=== PATIENT | female | born 1990 | race Caucasian/White ===

== ENCOUNTER 2016-06-22 21:32 | Emergency (ER) | payer OTHER ==
[2016-06-22] MEDS ORDERED: ACETAMINOPHEN IV (For NPO) 1,000 MG in EMPTY BAG 1 BAG IVPB STA (22:27)
[2016-06-22] MEDS ORDERED: SODIUM CHLORIDE 0.9% 1,000 ML IV ONE (22:27)
[2016-06-22] MEDS ORDERED: ONDANSETRON 4 MG/2 ML VIAL IVP STA (22:28)
[2016-06-22] MEDS ORDERED: HYDROmorphone 1 MG/ML 1 ML SYRINGE IVP STA (22:28)
--- NOTE | 2016-06-22 22:31 | ED ---
Abdominal Pain HPI - General Chief Complaint: Abdominal Pain Stated Complaint: Abd Pain Time Seen by Provider: 06/22/16 22:09 Source: patient, RN notes reviewed Mode of arrival: ambulatory Limitations: no limitations - History of Present Illness Initial Comments: Patient is a 25-year-old female since emergency room for evaluation of abdominal pain. Patient states she was here a few days ago for the same issues. Patient states she was told she had a right ovarian cyst. Patient states she hasn't been able follow-up with PROGRAM EVALUATOR. Patient states having worsening pain mostly in her right upper quadrant that radiates to her right lower quadrant and to her back. Patient states that she's been very nauseous and vomited multiple times. Patient also states that she's been very warm and has had a fever for the past 2 days. Patient states last time she took any Tylenol or Motrin was yesterday. Patient states having increasing pain. Patient states she hasn't been able to keep anything down. Patient also states she's had a cough and headache for the past few days. Patient does admit to smoking daily. Patient states having chills. Patient denies neck pain or shortness of breath. Patient denies chest pain. Patient denies pain or burning during urination, trouble urinating or blood in urine. Patient denies any history of kidney stones. Patient states she has a history of appendectomy when she was 13 years and a tubal ligation about 5 years ago. Patient denies history of STDs. Patient denies any abnormal vaginal discharge or irritation. - Related Data Previous Rx's Medication Instructions Recorded Acetaminophen-Codeine 300-30mg 1 tab PO Q4H PRN #20 tablet 06/17/16 [Tylenol w/codeine #3] Ibuprofen [Motrin] 600 mg PO Q8HR PRN #20 tab 06/17/16 Amoxicillin/Potassium Clav 1 each PO Q12HR #20 tab 06/23/16 [Augmentin 875-125 Tablet] Allergies Allergy/AdvReac Type Severity Reaction Status Date / Time latex Allergy Rash/Hives Verified 06/22/16 22:19 sulfamethoxazole Allergy Rash/Hives, Verified 06/22/16 22:19 [From Bactrim] vomiting trimethoprim [From Bactrim] Allergy Rash/Hives, Verified 06/22/16 22:19 vomiting Review of Systems ROS Statement: Those systems with pertinent positive or pertinent negative responses have been documented in the HPI. ROS Other: All systems not noted in ROS Statement are negative. Past Medical History Past Medical History: No Reported History Additional Past Medical History / Comment(s): ovarian cysts History of Any Multi-Drug Resistant Organisms: MRSA Date of last positivie culture/infection: 2011/MRSA MDRO Source:: pt states rt hip Past Surgical History: Appendectomy, Tubal Ligation Additional Past Surgical History / Comment(s): laproscopic of fallopian tubes Past Psychological History: No Psychological Hx Reported Smoking Status: Current every day smoker Past Alcohol Use History: Occasional Past Drug Use History: None Reported General Exam - General Exam Comments Initial Comments: Laying in exam room Limitations: no limitations General appearance: alert, in no apparent distress Head exam: Present: atraumatic, normocephalic, normal inspection Eye exam: Present: normal appearance, PERRL, EOMI Pupils: Present: normal accommodation ENT exam: Present: normal exam, mucous membranes moist, TM's normal bilaterally , normal external ear exam Neck exam: Present: normal inspection, full ROM. Absent: tenderness, lymphadenopathy Respiratory exam: Present: normal lung sounds bilaterally. Absent: respiratory distress Cardiovascular Exam: Present: normal rhythm, tachycardia, normal heart sounds GI/Abdominal exam: Present: soft, tenderness (RUQ), normal bowel sounds. Absent : distended, rebound, rigid Extremities exam: Present: normal inspection Back exam: Present: normal inspection Neurological exam: Present: alert, oriented X3, CN II-XII intact, normal gait Psychiatric exam: Present: normal affect, normal mood Skin exam: Present: warm, dry, intact, normal color. Absent: rash Course Vital Signs 06/22/16 06/22/16 06/23/16 21:46 23:28 00:29 Temperature 101.8 F H 104.3 F H 100.4 F H Pulse Rate 113 H 114 H 94 Respiratory 18 18 16 Rate Blood Pressure 105/55 105/62 110/56 O2 Sat by Pulse 99 100 99 Oximetry 06/23/16 06/23/16 06/23/16 01:14 02:43 04:03 Temperature 97.9 F 98.1 F 98 F Pulse Rate 88 62 18 L Respiratory 16 16 72 H Rate Blood Pressure 96/51 97/52 105/53 O2 Sat by Pulse 97 100 99 Oximetry Medical Decision Making - Medical Decision Making Patient is a 25-year-old female presents emergency room for evaluation of abdominal pain and fever. Patient has slightly elevated white count. Ultrasound from last visit so no concerning findings. Patient states that she received a pelvic exam done last visit. Vaginal culture significant for group B strep. CT of abdomen and pelvis significant for possible right pyelonephritis. Will patient on antibiotics to cover for group B strep. Patient states she understands everything that was discussed with her. Return parameters discussed. - Lab Data Result diagrams: 06/22/16 23:15 06/22/16 23:15 Lab Results 06/22/16 06/22/16 06/22/16 Range/Units 00:25 23:15 23:15 WBC 12.1 H (3.8-10.6) k/uL RBC 4.81 (3.80-5.40) m/uL Hgb 11.0 L (11.4-16.0) gm/dL Hct 35.2 (34.0-46.0) % MCV 73.2 L (80.0-100.0) fL MCH 22.9 L (25.0-35.0) pg MCHC 31.3 (31.0-37.0) g/dL RDW 15.5 (11.5-15.5) % Plt Count 327 (150-450) k/uL Neutrophils % 83 % Lymphocytes % 11 % Monocytes % 5 % Eosinophils % 1 % Basophils % 0 % Neutrophils # 10.0 H (1.3-7.7) k/uL Lymphocytes # 1.3 (1.0-4.8) k/uL Monocytes # 0.5 (0-1.0) k/uL Eosinophils # 0.1 (0-0.7) k/uL Basophils # 0.0 (0-0.2) k/uL Hypochromasia Slight Microcytosis Slight Sodium 134 L (137-145) mmol/L Potassium 3.5 (3.5-5.1) mmol/L Chloride 99 (98-107) mmol/L Carbon Dioxide 22 (22-30) mmol/L Anion Gap 13 mmol/L BUN 7 (7-17) mg/dL Creatinine 0.80 (0.52-1.04) mg/dL Est GFR (MDRD) Af Amer >60 (>60 ml/min/1.73 sqM) Est GFR (MDRD) Non-Af >60 (>60 ml/min/1.73 sqM) Glucose 112 H (74-99) mg/dL Calcium 8.5 (8.4-10.2) mg/dL Total Bilirubin 0.9 (0.2-1.3) mg/dL AST 13 L (14-36) U/L ALT 29 (9-52) U/L Alkaline Phosphatase 82 (38-126) U/L Total Protein 7.5 (6.3-8.2) g/dL Albumin 3.9 (3.5-5.0) g/dL Amylase <30 L (30-110) U/L Lipase 50 (23-300) U/L Urine Color Urine Appearance (Clear) Urine pH (5.0-8.0) Ur Specific [place] (1.001-1.035) Urine Protein (Negative) Urine Glucose (UA) (Negative) Urine Ketones (Negative) Urine Blood (Negative) Urine Nitrate (Negative) Urine Bilirubin (Negative) Urine Urobilinogen (<2.0) mg/dL Ur Leukocyte Esterase (Negative) Urine RBC (0-5) /hpf Urine WBC (0-5) /hpf Ur Squamous Epith Cells (0-4) /hpf Urine Mucus (None) /hpf Urine HCG, Qual Not Detected (Not Detectd) Influenza Type A RNA (Not Detectd) Influenza Type B (PCR) (Not Detectd) 06/22/16 06/23/16 Range/Units 23:15 00:25 WBC (3.8-10.6) k/uL RBC (3.80-5.40) m/uL Hgb (11.4-16.0) gm/dL Hct (34.0-46.0) % MCV (80.0-100.0) fL MCH (25.0-35.0) pg MCHC (31.0-37.0) g/dL RDW (11.5-15.5) % Plt Count (150-450) k/uL Neutrophils % % Lymphocytes % % Monocytes % % Eosinophils % % Basophils % % Neutrophils # (1.3-7.7) k/uL Lymphocytes # (1.0-4.8) k/uL Monocytes # (0-1.0) k/uL Eosinophils # (0-0.7) k/uL Basophils # (0-0.2) k/uL Hypochromasia Microcytosis Sodium (137-145) mmol/L Potassium (3.5-5.1) mmol/L Chloride (98-107) mmol/L Carbon Dioxide (22-30) mmol/L Anion Gap mmol/L BUN (7-17) mg/dL Creatinine (0.52-1.04) mg/dL Est GFR (MDRD) Af Amer (>60 ml/min/1.73 sqM) Est GFR (MDRD) Non-Af (>60 ml/min/1.73 sqM) Glucose (74-99) mg/dL Calcium (8.4-10.2) mg/dL Total Bilirubin (0.2-1.3) mg/dL AST (14-36) U/L ALT (9-52) U/L Alkaline Phosphatase (38-126) U/L Total Protein (6.3-8.2) g/dL Albumin (3.5-5.0) g/dL Amylase (30-110) U/L Lipase (23-300) U/L Urine Color Light Yellow Urine Appearance Clear (Clear) Urine pH 5.5 (5.0-8.0) Ur Specific [place] 1.004 (1.001-1.035) Urine Protein Negative (Negative) Urine Glucose (UA) Negative (Negative) Urine Ketones Trace H (Negative) Urine Blood Negative (Negative) Urine Nitrate Negative (Negative) Urine Bilirubin Negative (Negative) Urine Urobilinogen <2.0 (<2.0) mg/dL Ur Leukocyte Esterase Trace H (Negative) Urine RBC 1 (0-5) /hpf Urine WBC 9 H (0-5) /hpf Ur Squamous Epith Cells 3 (0-4) /hpf Urine Mucus Rare H (None) /hpf Urine HCG, Qual (Not Detectd) Influenza Type A RNA Not Detected (Not Detectd) Influenza Type B (PCR) Not Detected (Not Detectd) - Radiology Data Radiology results: report reviewed, image reviewed Disposition Clinical Impression: Pyelonephritis Disposition: HOME SELF-CARE Condition: Good Instructions: Flank Pain (ED), Kidney Infection (ED) Additional Instructions: Take antibiotics as directed. Follow-up with PROGRAM EVALUATOR in 24-48 hours for reevaluation. Alternate Tylenol and Motrin for fever. If any new symptom arises or symptoms worsen return to ER as soon as possible. Prescriptions: Amoxicillin/Potassium Clav [Augmentin 875-125 Tablet] 1 each PO Q12HR #20 tab Referrals: Freda Dickerson MD [STAFF PHYSICIAN] - 1-2 days Time of Disposition: 01:55
[2016-06-22 23:28] LABS: Basophils % (A) 0 %; CHCM 31.6; Eosinophils # (A) 0.1 k/uL (0-0.7); Eosinophils % (A) 1 %; HCT 35.2 % (34.0-46.0); HDW 2.77; Hypochromasia Slight; Luc # (Auto) 0.15; Luc % (Auto) 1; Lymphocytes # (A) 1.3 k/uL (1.0-4.8); Lymphocytes % (A) 11 %; MCH 22.9 pg (25.0-35.0); MCHC 31.3 g/dL (31.0-37.0); MCV 73.2 fL (80.0-100.0); Mean Platelet Volume 6.5; Microcytosis Slight; Monocytes # (A) 0.5 k/uL (0-1.0); Monocytes % (A) 5 %; Neutrophils % (A) 83 %; RBC 4.81 m/uL (3.80-5.40); RDW 15.5 % (11.5-15.5); WBC 12.1 k/uL (3.8-10.6); WBC (Perox) 12.85
[2016-06-22 23:39] LABS: ALT 29 U/L (9-52); AST 13 U/L (14-36); Alkaline Phosphatase 82 U/L (38-126); Amylase <30 U/L (30-110); Anion Gap 13 mmol/L; Blood Urea Nitrogen 7 mg/dL (7-17); Calcium 8.5 mg/dL (8.4-10.2); Carbon Dioxide 22 mmol/L (22-30); Chloride 99 mmol/L (98-107); Glucose 112 mg/dL (74-99); Non-African American GFR(MDRD) >60 (>60 ml/min/1.73 sqM); Potassium 3.5 mmol/L (3.5-5.1); Sodium 134 mmol/L (137-145); Total Bilirubin 0.9 mg/dL (0.2-1.3); Total Protein 7.5 g/dL (6.3-8.2)
[2016-06-23] MEDS ORDERED: RX INFO: IV CONTRAST WAS GIVEN 1 EACH MISC MISCELLANE PRN (00:19)
[2016-06-23 00:36] LABS: Appearance,Urine Clear (Clear); Bilirubin,Urine Negative (Negative); Glucose,Urine (UA) Negative (Negative); Ketones,Urine Trace (Negative); Leukocyte Esterase,Urine Trace (Negative); Mucus,Urine Rare /hpf; Nitrite,Urine Negative (Negative); PH, Urine 5.5 (5.0-8.0); Particle Count 2304; Protein,Urine Negative (Negative); RBC,Urine 1 /hpf (0-5); Specific Gravity,Urine 1.004 (1.001-1.035); Squamous Epithelial Cell,Urine 3 /hpf (0-4); UA Billing (MACRO vs. MICRO) MICRO; Urobilinogen,Urine <2.0 mg/dL (<2.0); WBC,Urine 9 /hpf (0-5)
--- NOTE | 2016-06-23 01:29 | CT ---
EXAMINATION TYPE: CT abdomen pelvis w con DATE OF EXAM: 06/23/2016 12:59 AM COMPARISON: CT pelvis 09/06/2009 HISTORY: Right side abdominal pain with nausea, vomiting, and diarrhea CT DLP: 343.50 mGycm Automated exposure control for dose reduction was used. TECHNIQUE: Helical acquisition of images was performed from the lung bases through the pelvis. CONTRAST: Performed without Oral Contrast and with IV Contrast, patient injected with 100 mL of Omnipaque 300. FINDINGS: LUNG BASES: No significant abnormality is appreciated. LIVER/GB: No significant abnormality is appreciated. PANCREAS: No significant abnormality is seen. SPLEEN: No significant abnormality is seen. ADRENALS: No significant abnormality is seen. KIDNEYS: The right kidney showed abnormal contrast enhancement and is suspicious for acute pyelonephritis dior ges. There is mild to moderate right hydronephrosis and hydroureter. This could be related to reflux uropa thy. No obvious opaque stones are noted in the visualized the right ureter. Surgical clips are noted in the right pelvis probably related to tubal ligation. Tubal ligation clips are also noted on the left side in the axial image 70.. Left kidney showed mild fullness in the left renal pelvis without significant obstructing stones. Lef t ureter is not well visualized and is not significantly distended. REPRODUCTIVE ORGANS: Uterus appears grossly unremarkable and is tilted towards right. Cystic changes are suggested in the right ovary. There is possibility of small amount of free fluid in the right adn exa and cul-de-sac. Tubal ligation changes are noted in the pelvis. URINARY BLADDER: No significant abnormality is seen. PELVIC ADENOPATHY: None visualized. OSSEOUS STRUCTURES: No significant abnormality is seen. BOWEL: Stomach appears unremarkable. Mild fluid distention of small bowel loops is noted with possib le mild ileus without significant focal small bowel obstruction. Colonic bowel loops showed moderate gas and fluid distention with possible ileus without significant bowel obstruction. Appendix is not w ell visualized for evaluation. Others: A metallic belly ring is noted in place. IMPRESSION: 1. THERE IS MILD TO MODERATE RIGHT HYDRONEPHROSIS AND HYDROURETER WITHOUT DEFINITE OPAQUE OBSTRUCTING STONE. THE CHANGES MAY BE RELATED TO REFLUX UROPATHY AND ACUTE PYELONEPHRITIS. 2. MILD FULLNESS IS NOTED IN THE LEFT KIDNEY WITHOUT SIGNIFICANT HYDRONEPHROSIS. 3. Possible mild ileus involving small bowel loops and colonic bowel loops. A phone report is given to Diane Brandon the PA at the time of the dictation.
--- NOTE | 2016-06-23 01:38 | XR ---
EXAMINATION TYPE: XR chest 2V DATE OF EXAM: 06/23/2016 12:56 AM COMPARISON: NONE HISTORY: History of cough and fever TECHNIQUE: Frontal and lateral views of the chest are obtained. FINDINGS: There is no focal air space opacity, pleural effusion, or pneumothorax seen. The cardiac silhouette size is within normal limits. The osseous structures are intact. Nipple rings are noted bilaterally. IMPRESSION: No acute cardiopulmonary process.
[2016-06-23] MEDS ORDERED: cefTRIAXone 2,000 MG VIAL IM STA (01:54)
[2016-06-23] MEDS ORDERED: ACET/COD 300 MG/30 MG STARTER PACK 6 TAB BTL PO STA (02:15)
[2016-06-23] MEDS ORDERED: cefTRIAXone 2,000 MG in SODIUM CHLORIDE 0.9% 100 ML IVPB STA (02:22)
[2016-06-23] MEDS ORDERED: MORPHINE SULFATE 2 MG/ML SYRINGE IVP ONE (02:46)
[2016-06-23 04:04] VITALS: BP 105/53; PULSE 18; RESP 72; TEMP 98
== END 2016-06-23 04:06 | disposition home or self-care (01) ==
LOC: EC 21:32
DX: N12 Tubulo-interstitial nephritis, not specified as acute or chronic (principal); N83.201 Unspecified ovarian cyst, right side; F17.200 Nicotine dependence, unspecified, uncomplicated; Z88.2 Allergy status to sulfonamides; Z88.1 Allergy status to other antibiotic agents; Z91.040 Latex allergy status; R05 Cough; R51 Headache; Z90.49 Acquired absence of other specified parts of digestive tract; B95.1 Streptococcus, group B, as the cause of diseases classified elsewhere
CPT/HCPCS: 36415; 80053; 82150; 83690; 85025; 81001; 81025; 87502; 71020; 74177; 99284; 96365; 96375 ×2; 96374; J2405; J0696; J2270; J1170; Q9967; J0131

== ENCOUNTER 2016-09-19 22:34 | Emergency (ER) | payer OTHER ==
[2016-09-19] MEDS ORDERED: KETOROLAC 30 MG/ML 1 ML VIAL IVP STA (23:34)
[2016-09-19] MEDS ORDERED: SODIUM CHLORIDE 0.9% 500 ML IV STA (23:34)
--- NOTE | 2016-09-19 23:36 | ED ---
Abdominal Pain HPI - General Chief Complaint: Abdominal Pain Stated Complaint: poss cyst on ovary Time Seen by Provider: 09/19/16 23:31 Source: patient, RN notes reviewed Mode of arrival: ambulatory Limitations: no limitations - History of Present Illness Initial Comments: 26-year-old female presents to the emergency department with a chief complaint of right lower quadrant abdominal pain. Patient states she has a history of ovarian cysts. Patient states she developed this pain earlier today. Patient states that radiates back. Patient states symptoms are so bad it caused her to have nausea. Patient states she hasn't had a fever or chills with this. Patient denies any cough cold runny nose. Patient states that she was concerned due to the patient's is that she should be evaluated. Patient does admit to a history of an appendectomy. Patient denies any recent fever, chills, shortness of breath, chest pain, back pain, nausea vomiting, numbness or tingling, dysuria or hematuria, constipation or diarrhea, headaches or visual changes, or any other current symptoms. - Related Data Home Medications Medication Instructions Recorded Confirmed Ibuprofen [Advil] 400 mg PO Q8HR PRN 09/19/16 09/19/16 Previous Rx's Medication Instructions Recorded Ibuprofen [Motrin] 600 mg PO Q6HR PRN #20 tab 09/20/16 Allergies Allergy/AdvReac Type Severity Reaction Status Date / Time latex Allergy Rash/Hives Verified 09/19/16 23:21 sulfamethoxazole Allergy Rash/Hives, Verified 09/19/16 23:21 [From Bactrim] vomiting trimethoprim [From Bactrim] Allergy Rash/Hives, Verified 09/19/16 23:21 vomiting Review of Systems ROS Statement: Those systems with pertinent positive or pertinent negative responses have been documented in the HPI. ROS Other: All systems not noted in ROS Statement are negative. Past Medical History Past Medical History: No Reported History Additional Past Medical History / Comment(s): ovarian cysts History of Any Multi-Drug Resistant Organisms: MRSA Date of last positivie culture/infection: 2011/MRSA MDRO Source:: pt states rt hip Past Surgical History: Appendectomy, Tubal Ligation Additional Past Surgical History / Comment(s): laproscopic of fallopian tubes Past Psychological History: No Psychological Hx Reported Smoking Status: Current every day smoker Past Alcohol Use History: Occasional Past Drug Use History: None Reported General Exam - General Exam Comments Initial Comments: General: The patient is awake and alert, in no distress, and does not appear acutely ill. Eye: Pupils are equal, round and reactive to light, extra-ocular movements are intact; there is normal conjunctiva bilaterally. No signs of icterus. Ears, nose, mouth and throat: There are moist mucous membranes. Neck: The neck is supple, there is no tenderness. Cardiovascular: There is a regular rate and rhythm. No murmur, rub or gallop is appreciated. Respiratory: Lungs are clear to auscultation, respirations are non-labored, breath sounds are equal. No wheezes, stridor, rales, or rhonchi. Gastrointestinal: Soft, non-distended, tenderness in the right lower quadrant of the abdomen without masses or organomegaly noted. There is no rebound or guarding present. No CVA tenderness. Bowel sounds are unremarkable. Back: There is no tenderness to palpation in the midline. There is no obvious deformity. No rashes noted. Musculoskeletal: Normal ROM, no tenderness, There is no pedal edema. There is no calf tenderness or swelling. Sensation intact. Pulses equal bilaterally 2+. Neurological: CN II-XII intact, There are no obvious motor or sensory deficits. Coordination appears grossly intact. Speech is normal. Skin: Skin is warm and dry and no rashes or lesions are noted. Psychiatric: Cooperative, appropriate mood & affect, normal judgment. Limitations: no limitations Course Vital Signs 09/19/16 22:47 Temperature 99.3 F Pulse Rate 108 H Respiratory 20 Rate Blood Pressure 118/61 O2 Sat by Pulse 100 Oximetry Medical Decision Making - Medical Decision Making 26-year-old female presents emergency Department chief complaint of abdominal pain. It is sinus patient appears to have a right ovarian cyst. This is likely causing the patient's pain. We discussed Motrin Tylenol for pain control. We discussed follow-up with EXECUTIVE TEAM LEADER and return parameters. Patient stated that she understood all the questions have been answered. She will be discharged home. - Lab Data Result diagrams: 09/19/16 23:48 09/19/16 23:48 Lab Results 09/19/16 09/19/16 09/19/16 Range/Units 23:30 23:48 23:48 WBC 6.5 (3.8-10.6) k/uL RBC 4.96 (3.80-5.40) m/uL Hgb 11.1 L (11.4-16.0) gm/dL Hct 36.6 (34.0-46.0) % MCV 73.8 L (80.0-100.0) fL MCH 22.4 L (25.0-35.0) pg MCHC 30.3 L (31.0-37.0) g/dL RDW 15.4 (11.5-15.5) % Plt Count 389 (150-450) k/uL Neutrophils % 58 % Lymphocytes % 32 % Monocytes % 6 % Eosinophils % 1 % Basophils % 0 % Neutrophils # 3.8 (1.3-7.7) k/uL Lymphocytes # 2.1 (1.0-4.8) k/uL Monocytes # 0.4 (0-1.0) k/uL Eosinophils # 0.1 (0-0.7) k/uL Basophils # 0.0 (0-0.2) k/uL Hypochromasia Marked Microcytosis Slight Sodium 142 (137-145) mmol/L Potassium 4.4 (3.5-5.1) mmol/L Chloride 104 (98-107) mmol/L Carbon Dioxide 26 (22-30) mmol/L Anion Gap 12 mmol/L BUN 6 L (7-17) mg/dL Creatinine 0.80 (0.52-1.04) mg/dL Est GFR (MDRD) Af Amer >60 (>60 ml/min/1.73 sqM) Est GFR (MDRD) Non-Af >60 (>60 ml/min/1.73 sqM) Glucose 80 (74-99) mg/dL Calcium 9.0 (8.4-10.2) mg/dL Total Bilirubin 0.3 (0.2-1.3) mg/dL AST 20 (14-36) U/L ALT 34 (9-52) U/L Alkaline Phosphatase 73 (38-126) U/L Total Protein 7.8 (6.3-8.2) g/dL Albumin 4.2 (3.5-5.0) g/dL Urine Color Colorless Urine Appearance Clear (Clear) Urine pH 6.0 (5.0-8.0) Ur Specific [place] 1.001 (1.001-1.035) Urine Protein Negative (Negative) Urine Glucose (UA) Negative (Negative) Urine Ketones Negative (Negative) Urine Blood Negative (Negative) Urine Nitrite Negative (Negative) Urine Bilirubin Negative (Negative) Urine Urobilinogen <2.0 (<2.0) mg/dL Ur Leukocyte Esterase Trace H (Negative) Urine WBC 1 (0-5) /hpf Ur Squamous Epith Cells <1 (0-4) /hpf - Radiology Data Radiology results: report reviewed, image reviewed Disposition Clinical Impression: Right ovarian cyst Disposition: HOME SELF-CARE Condition: Stable Instructions: Ovarian Cyst (ED) Additional Instructions: Please use medication as discussed. Please follow up with family doctor if symptoms have not improved over the next two days. Please return to the emergency room if your symptoms increase or worsen or for any other concerns. Prescriptions: Ibuprofen [Motrin] 600 mg PO Q6HR PRN #20 tab PRN Reason: Pain Referrals: None,Stated [Primary Care Provider] - 1-2 days Charles Hernadez MD [STAFF PHYSICIAN] - 1-2 days Time of Disposition: 01:55
[2016-09-19 23:41] LABS: Appearance,Urine Clear (Clear); Bilirubin,Urine Negative (Negative); Glucose,Urine (UA) Negative (Negative); Ketones,Urine Negative (Negative); Leukocyte Esterase,Urine Trace (Negative); Nitrite,Urine Negative (Negative); Particle Count 498; Protein,Urine Negative (Negative); Specific Gravity,Urine 1.001 (1.001-1.035); Squamous Epithelial Cell,Urine <1 /hpf (0-4); UA Billing (MACRO vs. MICRO) MICRO; Urobilinogen,Urine <2.0 mg/dL (<2.0); WBC,Urine 1 /hpf (0-5)
[2016-09-20 00:01] LABS: Basophils % (A) 0 %; CH 21.5; CHCM 29.2; Eosinophils # (A) 0.1 k/uL (0-0.7); Eosinophils % (A) 1 %; HCT 36.6 % (34.0-46.0); HDW 2.82; HGB 11.1 gm/dL (11.4-16.0); Hypochromasia Marked; Luc # (Auto) 0.18; Luc % (Auto) 3; Lymphocytes # (A) 2.1 k/uL (1.0-4.8); Lymphocytes % (A) 32 %; MCH 22.4 pg (25.0-35.0); MCHC 30.3 g/dL (31.0-37.0); MCV 73.8 fL (80.0-100.0); Mean Platelet Volume 6.5; Microcytosis Slight; Monocytes # (A) 0.4 k/uL (0-1.0); Monocytes % (A) 6 %; Neutrophils # (A) 3.8 k/uL (1.3-7.7); Neutrophils % (A) 58 %; RBC 4.96 m/uL (3.80-5.40); RDW 15.4 % (11.5-15.5); WBC 6.5 k/uL (3.8-10.6); WBC (Perox) 7.06
[2016-09-20 00:11] LABS: ALT 34 U/L (9-52); AST 20 U/L (14-36); Alkaline Phosphatase 73 U/L (38-126); Anion Gap 12 mmol/L; Blood Urea Nitrogen 6 mg/dL (7-17); Carbon Dioxide 26 mmol/L (22-30); Chloride 104 mmol/L (98-107); Glucose 80 mg/dL (74-99); Non-African American GFR(MDRD) >60 (>60 ml/min/1.73 sqM); Potassium 4.4 mmol/L (3.5-5.1); Sodium 142 mmol/L (137-145); Total Bilirubin 0.3 mg/dL (0.2-1.3); Total Protein 7.8 g/dL (6.3-8.2)
--- NOTE | 2016-09-20 01:48 | US ---
EXAM: US Pelvis, Transvaginal. CLINICAL HISTORY: Reason: Pain TECHNIQUE: Real-time transvaginal pelvic ultrasound (complete) with image documentation. Transvaginal imaging was used for better evaluation of the endometrium and adnexa. COMPARISON: CT abdomen and pelvis 06/23/2016 and pelvic ultrasound 06/17/2016 FINDINGS: Uterus/cervix: Anteverted, measuring 7.4 x 3.5 x 4.4 cm. Endometrial Stripe measures 0.7 cm, normal for age No myometrial mass. Right ovary: 3.4 x 2.1 x 2.2 cm. Cystic area with a hyperechoic rim visualized measuring 1.6 x 1.6 x 1.3 cm, likely corpus luteum cyst. Intraovarian flow is present. Left ovary: 3.9 x 1.9 x 1.7 cm. No adnexal mass or cyst. Intraovarian flow is present. Free fluid: Trace free fluid in the right adnexa, likely physiologic. Bladder: Empty bladder which cannot be evaluated with this probe. IMPRESSION: 1. Small right ovarian cyst, likely corpus luteum cyst. Normal bilateral intraovarian flow. 2. Trace free fluid in the right adnexa, likely physiologic.
[2016-09-20 02:16] VITALS: BP 108/52; PULSE 86; RESP 18; TEMP 98.1
[2016-09-20] MEDS ORDERED: ACETAMINOPHEN TAB 500 MG TAB PO STA (02:18)
== END 2016-09-20 02:25 | disposition home or self-care (01) ==
LOC: EC 22:34
DX: N83.201 Unspecified ovarian cyst, right side (principal); R11.0 Nausea; F17.200 Nicotine dependence, unspecified, uncomplicated; Z91.040 Latex allergy status; Z88.2 Allergy status to sulfonamides; Z90.49 Acquired absence of other specified parts of digestive tract; Z98.51 Tubal ligation status
CPT/HCPCS: 36415; 80053; 85025; 81001; 93975; 76830; 99284; 96374; 96361 ×2; J1885

== ENCOUNTER 2017-03-18 16:03 | Emergency (ER) | payer OTHER ==
[2017-03-18 16:08] VITALS: BP 93/57; PULSE 79; RESP 18; TEMP 97.4
--- NOTE | 2017-03-18 16:25 | ED ---
General Adult HPI - General Chief complaint: Extremity Injury, Upper Stated complaint: CRUSHING INJURY INDEX FINGER RT HAND Time Seen by Provider: 03/18/17 16:13 Source: patient, family, RN notes reviewed Mode of arrival: ambulatory Limitations: no limitations - History of Present Illness Initial comments: Chief complaint history of present illness a 26-year-old female here with her significant other. The patient accidentally got her right index finger caught in a door jam. She is right handed. She has a small laceration volar and dorsal surface. Over the PIP joint. Range of motion is decreased secondary to pain at this time. - Related Data Home Medications Medication Instructions Recorded Confirmed No Known Home Medications [No 03/18/17 03/18/17 Known Home Medications] Allergies Allergy/AdvReac Type Severity Reaction Status Date / Time latex Allergy Rash/Hives Verified 03/18/17 16:40 sulfamethoxazole Allergy Rash/Hives, Verified 03/18/17 16:40 [From Bactrim] vomiting trimethoprim [From Bactrim] Allergy Rash/Hives, Verified 03/18/17 16:40 vomiting Review of Systems ROS Statement: Those systems with pertinent positive or pertinent negative responses have been documented in the HPI. Review of systems no other complaints of pain to the right index finger. Patient's denying any other problems. All systems are reviewed. Past medical problems reviewed and are negative. Surgeries appendectomy and tubal ligation. Also family history great uncle lung cancer. Patient has ALLERGIES to sulfa takes. She does smoke strongly encouraged stop and call her family physician about ways to help stop. Denies alcohol use ROS Other: All systems not noted in ROS Statement are negative. Past Medical History Past Medical History: No Reported History Additional Past Medical History / Comment(s): ovarian cysts History of Any Multi-Drug Resistant Organisms: MRSA Date of last positivie culture/infection: 2011/MRSA MDRO Source:: pt states rt hip Past Surgical History: Appendectomy, Tubal Ligation Additional Past Surgical History / Comment(s): laproscopic of fallopian tubes Past Psychological History: No Psychological Hx Reported Smoking Status: Current every day smoker Past Alcohol Use History: Occasional Past Drug Use History: None Reported General Exam - General Exam Comments Initial Comments: General: The patient is awake and alert, complaining of pain with crush type injury over the PIP joint dominant right index finger. Vital signs temperature 97.4 pulse 79 respiratory rate 18 pulse ox R percent room air blood pressure 93/57 Musculoskeletal: Emanation finds the patient had injury to her right index finger through the PIP joint. Decreased range of motion secondary to pain. 2 small lacerations over 4 and dorsal surface through the PIP area. Neurovascular status intact. Limitations: no limitations Course Vital Signs 03/18/17 16:06 Temperature 97.4 F L Pulse Rate 79 Respiratory 18 Rate Blood Pressure 93/57 O2 Sat by Pulse 100 Oximetry Procedures - Procedures Initial comment: Her seizure; using sterile technique 1% Xylocaine was used to numb the right index finger. It was examined no evidence of any foreign bodies. Tendons intact and pupils patient is able to flex and extend fully. Both PIP and DIP joint. The wound was cleaned with Betadine. Sutured with 2 interrupted mattress style sutures of 4-0 nylon closure. Patient will be advised to return to 8-10 days for suture to remove her story signs of infection. Dr. Navarro Medical Decision Making - Medical Decision Making Medical decision making; x-ray of the right hand was done and reviewed. Radiologist's impression is no acute fractures or dislocations are evident. Soft tissues appear within normal limits. Some minimal diffuse soft tissue swelling along the index finger is not entirely excluded. Impression no acute osseous abnormality. Follow-up exam to be performed 7-10 days from acute trauma for continued pain. As read by Dr. Ky Pritchett at a 1 mL laceration on the volar surface. This was cleaned and sutured closed. Disposition Clinical Impression: Laceration of right index finger Disposition: HOME SELF-CARE Condition: Fair Instructions: Finger Laceration (ED) Additional Instructions: Ice elevate. Return in 8-10 days for suture to be removed earlier should be signs of infection. Report any decreased function numbness or tingling. Referrals: None,Stated [Primary Care Provider] - 1-2 days Time of Disposition: 17:16
--- NOTE | 2017-03-18 16:37 | XR ---
EXAMINATION TYPE: XR hand complete RT DATE OF EXAM: 03/18/2017 COMPARISON: NONE HISTORY: Index finger caught in door jam TECHNIQUE: Three-view right hand FINDINGS: No acute fractures or dislocations are evident. Soft tissues appear within normal limits. S ome minimal diffuse soft tissue swelling along the index finger is not entirely excluded. IMPRESSION: 1. No acute osseous abnormality. 2. Follow-up exam can be performed 7-10 days from acute trauma for continued pain.
--- NOTE | 2017-03-20 07:23 | CDI ---
Documentation Clarification OP Dear Baldev JAVIER MD Please do addendum to ED report that describes the laceration length and depth of the repair. Thank you, Casie Ness Career Technical Supervisor If you have any question, Please contact construction manager at [phone] [facility]
== END 2017-03-18 17:36 | disposition home or self-care (01) ==
LOC: EC 16:03
DX: S61.210A Laceration without foreign body of right index finger without damage to nail, initial encounter (principal); Z88.2 Allergy status to sulfonamides; Z91.040 Latex allergy status; F17.200 Nicotine dependence, unspecified, uncomplicated; W23.0XXA Caught, crushed, jammed, or pinched between moving objects, initial encounter
CPT/HCPCS: 12001; 99283

== ENCOUNTER 2018-04-02 17:45 | Emergency (ER) | payer OTHER ==
[2018-04-02] MEDS ORDERED: ONDANSETRON 4 MG/2 ML VIAL IVP STA (19:51)
[2018-04-02] MEDS ORDERED: KETOROLAC 30 MG/ML 1 ML VIAL IVP STA (19:51)
[2018-04-02] MEDS ORDERED: SODIUM CHLORIDE 0.9% 1,000 ML IV STA (19:51)
--- NOTE | 2018-04-02 20:02 | ED ---
Abdominal Pain HPI - General Chief Complaint: Abdominal Pain Stated Complaint: Abd Pain Time Seen by Provider: 04/02/18 19:15 Source: patient, RN notes reviewed Mode of arrival: ambulatory Limitations: no limitations - History of Present Illness Initial Comments: This is a 27-year-old female who presents to the emergency department with chief complaint of abdominal pain. Patient states that 7-8 hours ago she developed pain in her right lower abdomen and on the right side of her low back. She states the pain is constant and sharp. She states that she has experienced this pain before in the past when she had a kidney infection. She reports chills but denies fevers. Reports nausea but denies vomiting. She denies dysuria or hematuria but states that she has the sensation of not emptying her bladder fully. States she did have an episode of diarrhea yesterday. Patient states she has no medical issues and only takes multivitamins daily. - Related Data Home Medications Medication Instructions Recorded Confirmed Multivitamins, Thera [Multivitamin 1 tab PO DAILY 04/02/18 04/02/18 (formulary)] Previous Rx's Medication Instructions Recorded Levofloxacin [Levaquin] 750 mg PO DAILY 7 Days #7 tab 04/02/18 Allergies Allergy/AdvReac Type Severity Reaction Status Date / Time latex Allergy Rash/Hives Verified 04/02/18 19:18 sulfamethoxazole Allergy Rash/Hives, Verified 04/02/18 19:18 [From Bactrim] vomiting trimethoprim [From Bactrim] Allergy Rash/Hives, Verified 04/02/18 19:18 vomiting Review of Systems ROS Statement: Those systems with pertinent positive or pertinent negative responses have been documented in the HPI. ROS Other: All systems not noted in ROS Statement are negative. Past Medical History Past Medical History: No Reported History Additional Past Medical History / Comment(s): ovarian cysts History of Any Multi-Drug Resistant Organisms: MRSA Date of last positivie culture/infection: 2011/MRSA MDRO Source:: pt states rt hip Past Surgical History: Appendectomy, Tubal Ligation Additional Past Surgical History / Comment(s): laproscopic of fallopian tubes Past Psychological History: No Psychological Hx Reported Smoking Status: Current every day smoker Past Alcohol Use History: Occasional Past Drug Use History: None Reported General Exam - General Exam Comments Initial Comments: General: Awake and alert, well-developed; in no apparent distress. Appears well , sitting comfortably on ED stretcher. HEENT: Head atraumatic, normocephalic. Pupils are equal, round and reactive to light. Extraocular movements intact. Oropharynx moist without erythema or exudate. Neck: Supple. Normal ROM. Cardiovascular: Regular rate and rhythm. No murmurs, rubs or gallops. Chest symmetrical. Respiratory: Lungs clear to auscultation bilaterally. No wheezes, rales or rhonchi. Normal respiratory effort with no use of accessory muscles. Abdomen: Soft, non-distended. Mild tenderness on palpation of the right lower quadrant. No rigidity, rebound or guarding. Normal bowel sounds in all 4 quadrants. Right CVA tenderness. Musculoskeletal: Normal ROM, no tenderness bilateral upper and lower extremities. Ambulating normally. Skin: [place], warm and dry without rashes or lesions. Neurological: Alert and oriented x3. CN II-XII grossly intact. Speech is fluent and answers are appropriate. No focal neuro deficits. Psychiatric: Normal mood and affect. No overt signs of depression or anxiety noted. Limitations: no limitations Course Vital Signs 04/02/18 04/02/18 04/02/18 18:12 22:00 23:11 Temperature 98.4 F 98.7 F Pulse Rate 98 60 65 Respiratory 20 18 16 Rate Blood Pressure 118/79 116/78 117/87 O2 Sat by Pulse 100 98 100 Oximetry 04/02/18 23:42 Temperature 98.0 F Pulse Rate 66 Respiratory 18 Rate Blood Pressure 118/80 O2 Sat by Pulse 98 Oximetry Medical Decision Making - Medical Decision Making This is a 27-year-old female who presents to the emergency department with chief complaint of abdominal pain. Patient reports a constant sharp pain in her right lower abdomen and right flank. She also reports chills and nausea. There is right CVA tenderness on exam. Patient states that the last time she had this pain she was diagnosed with a kidney infection. CBC and CMP revealed no significant abnormalities. UA revealed moderate blood, large leukocyte esterase, 119 red blood cells and greater than 182 white blood cells. Discussed treating patient for pyelonephritis versus scanning for kidney stone. I have low clinical suspicion for kidney stone as patient has no history of kidney stones, her pain is constant and not colicky in nature and her x-ray KUB reveals no calcifications over the kidneys. High clinical suspicion for pyelonephritis as patient has a history of urinary tract infections, she reports chills and nausea, there is tenderness on palpation of the right flank and there is evidence for infection in the urine. This was discussed with patient who is in agreement for treating with antibiotics. She declines CT at this time. I instructed patient to return to the emergency department if pain does not resolve within 2-3 days of taking antibiotics. Her vital signs are stable and she is in no acute distress. She will be discharged home at this time. Patient is in agreement with plan and voices understanding. All questions were answered. - Lab Data Result diagrams: 04/02/18 19:30 04/02/18 19:30 Lab Results 04/02/18 04/02/18 04/02/18 Range/Units 19:30 19:30 19:30 WBC 7.9 (3.8-10.6) k/uL RBC 5.24 (3.80-5.40) m/uL Hgb 11.5 (11.4-16.0) gm/dL Hct 36.2 (34.0-46.0) % MCV 69.2 L (80.0-100.0) fL MCH 21.9 L (25.0-35.0) pg MCHC 31.7 (31.0-37.0) g/dL RDW 17.3 H (11.5-15.5) % Plt Count 472 H (150-450) k/uL Neutrophils % 57 % Lymphocytes % 33 % Monocytes % 6 % Eosinophils % 1 % Basophils % 0 % Neutrophils # 4.5 (1.3-7.7) k/uL Lymphocytes # 2.6 (1.0-4.8) k/uL Monocytes # 0.5 (0-1.0) k/uL Eosinophils # 0.1 (0-0.7) k/uL Basophils # 0.0 (0-0.2) k/uL Hypochromasia Moderate Anisocytosis Slight Microcytosis Marked Sodium 139 (137-145) mmol/L Potassium 4.1 (3.5-5.1) mmol/L Chloride 105 (98-107) mmol/L Carbon Dioxide 26 (22-30) mmol/L Anion Gap 8 mmol/L BUN 10 (7-17) mg/dL Creatinine 0.70 (0.52-1.04) mg/dL Est GFR (CKD-EPI)AfAm >90 (>60 ml/min/1.73 sqM) Est GFR (CKD-EPI)NonAf >90 (>60 ml/min/1.73 sqM) Glucose 82 (74-99) mg/dL Calcium 9.3 (8.4-10.2) mg/dL Total Bilirubin 0.5 (0.2-1.3) mg/dL AST 32 (14-36) U/L ALT 32 (9-52) U/L Alkaline Phosphatase 68 (38-126) U/L Total Protein 8.1 (6.3-8.2) g/dL Albumin 4.4 (3.5-5.0) g/dL Amylase 47 (30-110) U/L Lipase 124 (23-300) U/L Urine Color Yellow Urine Appearance Cloudy H (Clear) Urine pH 5.5 (5.0-8.0) Ur Specific [place] 1.021 (1.001-1.035) Urine Protein 2+ H (Negative) Urine Glucose (UA) Negative (Negative) Urine Ketones Negative (Negative) Urine Blood Moderate H (Negative) Urine Nitrite Negative (Negative) Urine Bilirubin Negative (Negative) Urine Urobilinogen <2.0 (<2.0) mg/dL Ur Leukocyte Esterase Large H (Negative) Urine RBC 119 H (0-5) /hpf Urine WBC >182 H (0-5) /hpf Ur Squamous Epith Cells 18 H (0-4) /hpf Urine Mucus Moderate H (None) /hpf Urine HCG, Qual (Not Detectd) 04/02/18 Range/Units 19:30 WBC (3.8-10.6) k/uL RBC (3.80-5.40) m/uL Hgb (11.4-16.0) gm/dL Hct (34.0-46.0) % MCV (80.0-100.0) fL MCH (25.0-35.0) pg MCHC (31.0-37.0) g/dL RDW (11.5-15.5) % Plt Count (150-450) k/uL Neutrophils % % Lymphocytes % % Monocytes % % Eosinophils % % Basophils % % Neutrophils # (1.3-7.7) k/uL Lymphocytes # (1.0-4.8) k/uL Monocytes # (0-1.0) k/uL Eosinophils # (0-0.7) k/uL Basophils # (0-0.2) k/uL Hypochromasia Anisocytosis Microcytosis Sodium (137-145) mmol/L Potassium (3.5-5.1) mmol/L Chloride (98-107) mmol/L Carbon Dioxide (22-30) mmol/L Anion Gap mmol/L BUN (7-17) mg/dL Creatinine (0.52-1.04) mg/dL Est GFR (CKD-EPI)AfAm (>60 ml/min/1.73 sqM) Est GFR (CKD-EPI)NonAf (>60 ml/min/1.73 sqM) Glucose (74-99) mg/dL Calcium (8.4-10.2) mg/dL Total Bilirubin (0.2-1.3) mg/dL AST (14-36) U/L ALT (9-52) U/L Alkaline Phosphatase (38-126) U/L Total Protein (6.3-8.2) g/dL Albumin (3.5-5.0) g/dL Amylase (30-110) U/L Lipase (23-300) U/L Urine Color Urine Appearance (Clear) Urine pH (5.0-8.0) Ur Specific [place] (1.001-1.035) Urine Protein (Negative) Urine Glucose (UA) (Negative) Urine Ketones (Negative) Urine Blood (Negative) Urine Nitrite (Negative) Urine Bilirubin (Negative) Urine Urobilinogen (<2.0) mg/dL Ur Leukocyte Esterase (Negative) Urine RBC (0-5) /hpf Urine WBC (0-5) /hpf Ur Squamous Epith Cells (0-4) /hpf Urine Mucus (None) /hpf Urine HCG, Qual Not Detected (Not Detectd) - Radiology Data Radiology results: report reviewed X-ray KUB impression: No acute process. Disposition Clinical Impression: Pyelonephritis Disposition: HOME SELF-CARE Condition: Good Instructions: Urinary Tract Infection in Women (ED), Kidney Infection (ED) Additional Instructions: As discussed, please return to the emergency department if pain does not improve within 2-3 days of taking antibiotics. Please take medications as prescribed. Please follow up with primary care provider within 1-2 days. Return to emergency department if symptoms should worsen or any concerns arise. Prescriptions: Levofloxacin [Levaquin] 750 mg PO DAILY 7 Days #7 tab Is patient prescribed a controlled substance at d/c from ED?: No Referrals: None,Stated [Primary Care Provider] - 1-2 days Time of Disposition: 22:14
[2018-04-02 20:03] LABS: Anisocytosis Slight; Basophils % (A) 0 %; Eosinophils # (A) 0.1 k/uL (0-0.7); Eosinophils % (A) 1 %; HCT 36.2 % (34.0-46.0); HGB 11.5 gm/dL (11.4-16.0); Hypochromasia Moderate; Lymphocytes # (A) 2.6 k/uL (1.0-4.8); Lymphocytes % (A) 33 %; MCH 21.9 pg (25.0-35.0); MCHC 31.7 g/dL (31.0-37.0); MCV 69.2 fL (80.0-100.0); Microcytosis Marked; Monocytes # (A) 0.5 k/uL (0-1.0); Monocytes % (A) 6 %; Neutrophils # (A) 4.5 k/uL (1.3-7.7); Neutrophils % (A) 57 %; Platelet Count 472 k/uL (150-450); RBC 5.24 m/uL (3.80-5.40); RDW 17.3 % (11.5-15.5); WBC 7.9 k/uL (3.8-10.6)
[2018-04-02 20:05] LABS: Appearance,Urine Cloudy (Clear); Bilirubin,Urine Negative (Negative); Blood,Urine Moderate (Negative); Color,Urine Yellow; Glucose,Urine (UA) Negative (Negative); Ketones,Urine Negative (Negative); Leukocyte Esterase,Urine Large (Negative); Mucus,Urine Moderate /hpf; Nitrite,Urine Negative (Negative); PH, Urine 5.5 (5.0-8.0); Protein,Urine 2+ (Negative); RBC,Urine 119 /hpf (0-5); Specific Gravity,Urine 1.021 (1.001-1.035); Squamous Epithelial Cell,Urine 18 /hpf (0-4); Urobilinogen,Urine <2.0 mg/dL (<2.0); WBC,Urine >182 /hpf (0-5)
[2018-04-02 20:12] LABS: ALT 32 U/L (9-52); AST 32 U/L (14-36); Albumin 4.4 g/dL (3.5-5.0); Alkaline Phosphatase 68 U/L (38-126); Amylase 47 U/L (30-110); Anion Gap 8 mmol/L; Blood Urea Nitrogen 10 mg/dL (7-17); Calcium 9.3 mg/dL (8.4-10.2); Carbon Dioxide 26 mmol/L (22-30); Chloride 105 mmol/L (98-107); Glucose 82 mg/dL (74-99); Lipase 124 U/L (23-300); Potassium 4.1 mmol/L (3.5-5.1); Sodium 139 mmol/L (137-145); Total Bilirubin 0.5 mg/dL (0.2-1.3); Total Protein 8.1 g/dL (6.3-8.2)
--- NOTE | 2018-04-02 21:33 | XR ---
EXAMINATION TYPE: XR KUB, 2 views DATE OF EXAM: 04/02/2018 COMPARISON: NONE HISTORY: Right-sided abdominal pain with a negative beta hCG TECHNIQUE: 2 upright views FINDINGS: Lung bases and pleural spaces are negative. There is no pneumoperitoneum. No pneumatosis. The bowel gas pattern is normal. No acute soft tissue or skeletal findings. IMPRESSION: NO ACUTE PROCESS.
[2018-04-02] MEDS ORDERED: ACETAMINOPHEN TAB 325 MG TAB PO STA (21:59)
[2018-04-02 23:44] VITALS: BP 118/80; PULSE 66; RESP 18; TEMP 98
== END 2018-04-02 23:42 | disposition home or self-care (01) ==
LOC: EC 17:45
DX: N12 Tubulo-interstitial nephritis, not specified as acute or chronic (principal); F17.200 Nicotine dependence, unspecified, uncomplicated; Z88.2 Allergy status to sulfonamides; Z91.040 Latex allergy status; Z86.14 Personal history of Methicillin resistant Staphylococcus aureus infection; Z90.49 Acquired absence of other specified parts of digestive tract; Z53.8 Procedure and treatment not carried out for other reasons
CPT/HCPCS: 99284; 96365; 96375 ×2; 96361; 36415; 80053; 82150; 83690; 85025; 81001; 81025; 74018; J2405; J0696; J1885

== ENCOUNTER → 2020-10-27 | Outpatient (CLI) | payer OTHER ==
--- NOTE | 2020-10-27 09:24 | XR ---
EXAMINATION TYPE: XR Hip Complete RT DATE OF EXAM: 10/27/2020 COMPARISON: NONE HISTORY: Pain TECHNIQUE: 2 views submitted FINDINGS: There is no evidence of erosive change or acute fracture. Surgical change in the pelvis noted. Tiny calcification along the margin of the acetabulum noted. IMPRESSION: 1. No evidence of acute fracture or dislocation. Tiny calcification along the lateral margin of the a cetabulum can be associated with an acetabular labral tear. Consider MRI follow-up.
--- NOTE | 2020-10-27 09:25 | XR ---
EXAM TYPE: LUMBAR SPINE X RAY SERIES COMPARISON: NONE HISTORY: Pain TECHNIQUE: 4 views are submitted. FINDINGS: Alignment is anatomic. The pedicles are intact. The transverse processes are intact. There is no s pondylolysis or spondylolisthesis. Mild hypertrophic changes L5-S1. IMPRESSION: 1. No acute process.
--- NOTE | 2020-10-27 09:31 | US ---
EXAMINATION TYPE: US transvaginal DATE OF EXAM: 10/27/2020 COMPARISON: US CLINICAL HISTORY: N92.6 Irregular menstruation,Z00.01, M54.9DORSALGI. Irregular menses x 7 months wit h long and short cycles; tubal ligation; just had Depo pro vera shot to regulate cycles; TECHNIQUE: TV US. Transvaginal sonographic images were medically necessary to better assess the fol lowing anatomy: endometrium as bladder was not fully prepped Date of LMP: 10/21/2020 EXAM MEASUREMENTS: Uterus: 7.2 x 4.2 x 4.1 cm Endometrial Stripe: 0.4cm Right Ovary: 2.1 x 2.0 x 2.3 cm Left Ovary: 2.7 x 1.8 x 2.0 cm 1. Uterus: Anteverted; multiple Nabothian Cysts in cervix with largest = 0.7 x 0.6 x 0.5cm 2. Endometrium: thickness is wnl for Day 7LMP 3. Right Ovary: multiple follicles with largest = 0.9 x 0.9 x 0.5cm 4. Left Ovary: multiple follicles with largest = 0.9 x 0.6 x 0.8cm Spectral, color and waveform doppler imaging shows good arterial and venous flow within the ovaries ; there is no evidence for ovarian torsion. 5. Bilateral Adnexa: wnl 6. Posterior cul-de-sac: wnl IMPRESSION: No acute process.
== END | disposition home or self-care (01) ==
LOC: RADUSWWP 08:27
PROVIDERS: ATTEND Pediatrics
DX: N92.6 Irregular menstruation, unspecified (principal); M25.551 Pain in right hip; M54.5 Low back pain
CPT/HCPCS: 72110; 73502; 76830

== ENCOUNTER 2020-12-04 17:08 | Emergency (ER) | payer OTHER ==
[2020-12-04 17:18] VITALS: TEMP 98
--- NOTE | 2020-12-04 17:50 | ED ---
General Adult HPI - General Chief complaint: Abdominal Pain Stated complaint: Lower abd pain, vomiting Time Seen by Provider: 12/04/20 17:22 Source: patient Mode of arrival: ambulatory Limitations: no limitations - History of Present Illness Initial comments: Dictation was produced using [employer] dictation software. please excuse any grammatical, word or spelling errors. Chief Complaint: 30-year-old male presents to the emergency department for right groin pain History of Present Illness: 30-year-old female she has been working with outpatient doctors for her groin pain. She was told that there is concern for endometriosis patient does smoke cigarettes. She was told that her MRI was delayed because she has to complete physical therapy for her groin pain. Patient states that her pain is episodic. Spent ongoing for a year. No psoas of nausea vomiting. Patient states she has been having vaginal bleeding for the last 10 days. She has history of iron deficiency. Patient has an appointment with her doctor regarding her chronic symptoms next week. No specific fever. No chills or constitutional symptoms. she has history of appendectomy and bilateral tubal ligation The ROS documented in this emergency department record has been reviewed and confirmed by me. Those systems with pertinent positive or negative responses have been documented in the HPI. All other systems are other negative and/or noncontributory. PHYSICAL EXAM: General Impression: Alert and oriented x3, not in acute distress HEENT: Normocephalic atraumatic, extra-ocular movements intact, pupils equal and reactive to light bilaterally, mucous membranes moist. Cardiovascular: Heart regular rate and rhythm Chest: Able to complete full sentences, no retractions, no tachypnea Abdomen: abdomen soft, mild tenderness to the right lower quadrant., non- distended, no organomegaly, no palpable mass with Valsalva Musculoskeletal: Pulses present and equal in all extremities, no peripheral edema Motor: no focal deficits noted Neurological: CN II-XII grossly intact, no focal motor or sensory deficits noted Skin: Intact with no visualized rashes Psych: Normal affect and mood ED course: 30-year-old female presents with chronic right inguinal pain. As upon arrival are within acceptable limits. Patient has history of appendectomy and bilateral tubal ligation Her abdominal exam is benign. She has no findings of hernia. History of present illnesses negative for details to suspect surgical abdomen. Patient has appointment next week with her doctor regarding her chronic pain. Patient wants to get a transvaginal ultrasound. Transvaginal ultrasound was obtained. Normal uterus. No adnexal mass or free fluid. No evidence oriented. Torsion. There is a possible enlarged appendix that measures 8 mm. Patient has history of appendectomy 2004. Radiologist was contacted to discuss tubelike structure. Nuno with this tubelike structure is however it's unlikely to be appendicitis. 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 She is told to keep that appointment. Patient notified of the results. She is clear for discharge. - Related Data Home Medications Medication Instructions Recorded Confirmed Multivitamins, Thera [Multivitamin 1 tab PO DAILY 04/02/18 04/02/18 (formulary)] Previous Rx's Medication Instructions Recorded Levofloxacin [Levaquin] 750 mg PO DAILY 7 Days #7 tab 04/02/18 Allergies Allergy/AdvReac Type Severity Reaction Status Date / Time latex Allergy Rash/Hives Verified 12/04/20 17:18 sulfamethoxazole Allergy Rash/Hives, Verified 12/04/20 17:18 [From Bactrim] vomiting trimethoprim [From Bactrim] Allergy Rash/Hives, Verified 12/04/20 17:18 vomiting Review of Systems ROS Statement: Those systems with pertinent positive or pertinent negative responses have been documented in the HPI. ROS Other: All systems not noted in ROS Statement are negative. Past Medical History Past Medical History: No Reported History Additional Past Medical History / Comment(s): ovarian cysts History of Any Multi-Drug Resistant Organisms: MRSA Date of last positivie culture/infection: 2011/MRSA MDRO Source:: pt states rt hip Past Surgical History: Appendectomy, Tubal Ligation Additional Past Surgical History / Comment(s): laproscopic of fallopian tubes Past Psychological History: No Psychological Hx Reported Smoking Status: Current every day smoker Past Alcohol Use History: Occasional Past Drug Use History: None Reported General Exam Limitations: no limitations Course Vital Signs 12/04/20 12/04/20 17:15 18:18 Temperature 98.0 F Pulse Rate 95 Respiratory 20 18 Rate Blood Pressure 146/80 O2 Sat by Pulse 96 Oximetry Disposition Clinical Impression: Pelvic pain Disposition: HOME SELF-CARE Condition: Good Instructions (If sedation given, give patient instructions): Pelvic Pain in Women (ED) Additional Instructions: Follow-up with your statistical methods professor. Is patient prescribed a controlled substance at d/c from ED?: No
[2020-12-04] MEDS ORDERED: oxyCODONE-APAP 10-325MG 1 EACH TAB PO PRN (18:40)
--- NOTE | 2020-12-04 18:50 | US ---
EXAMINATION TYPE: US transvaginal DATE OF EXAM: 12/04/2020 COMPARISON: US 10/27/2020 CLINICAL HISTORY: RLQ pain. Nausea, vomiting. Difficult exam due to large amount of peristalsing juan l TECHNIQUE: . Transvaginal sonographic images of the pelvis were acquired. Date of LMP: Bleeding for 10 days per patient EXAM MEASUREMENTS: Uterus: 6.2 x 3.5 x 3.8 cm Endometrial Stripe: 0.4 cm Right Ovary: 2.5 x 1.9 x 1.8 cm Left Ovary: 2.8 x 1.7 x 2.5 cm 1. Uterus: Anteverted wnl. Nabothian cyst visualized 2. Endometrium: wnl 3. Right Ovary: wnl, follicles visualized 4. Left Ovary: wnl, follicles visualized Spectral, color and waveform doppler imaging shows good arterial and venous flow within the ovaries ; there is no evidence for ovarian torsion. 5. Bilateral Adnexa: See below 6. Posterior cul-de-sac: wnl Within the RLQ, there is a non-compressible, non-peristalsing, fluid-filled, tube like structure visu alized measuring 0.8 cm. Possible appendix vs other. IMPRESSION: Normal uterus. No adnexal mass or free fluid. No evidence of ovarian torsion. Possible enlarged appendix that measures 8 mm.
[2020-12-04 19:30] VITALS: BP 126/82; PULSE 101; RESP 20
== END 2020-12-04 19:37 | disposition home or self-care (01) ==
LOC: EC 17:08
DX: R10.9 Unspecified abdominal pain (principal); F17.210 Nicotine dependence, cigarettes, uncomplicated; Z90.89 Acquired absence of other organs; Z98.51 Tubal ligation status
CPT/HCPCS: 76830; 93975; 99284

== ENCOUNTER → 2022-07-18 | Outpatient (CLI) | payer OTHER ==
--- NOTE | 2022-07-18 14:50 | XR ---
EXAMINATION TYPE: XR lumbar spine 2 or 3V DATE OF EXAM: 07/18/2022 CLINICAL HISTORY: Fall, pain. TECHNIQUE: Three views of the lumbar spine are submitted. COMPARISON: Lumbar radiograph 10/27/2020. FINDINGS: There are 5 lumbar type vertebral bodies identified. The lumbar spine shows satisfactory alignment w ithout evidence of acute fracture or dislocation. Vertebral body heights are within normal limits. Disc spaces are within normal limits. The overlying soft tissue appears unremarkable. IMPRESSION: No acute fracture or dislocation is seen in the lumbar spine.
--- NOTE | 2022-07-18 14:51 | XR ---
EXAMINATION TYPE: XR humerus RT DATE OF EXAM: 07/18/2022 COMPARISON: NONE HISTORY: Pain TECHNIQUE: 2 views submitted. FINDINGS: The osseous structures are intact and the joint spaces are preserved. IMPRESSION: 1. No acute fracture or dislocation.
--- NOTE | 2022-07-18 14:52 | XR ---
EXAMINATION TYPE: XR shoulder complete RT DATE OF EXAM: 07/18/2022 COMPARISON: NONE HISTORY: Pain TECHNIQUE: Three views are submitted. FINDINGS: The osseous structures are intact. There is no acute fracture or dislocation. The AC joint is maint ained. IMPRESSION: 1. No acute process.
--- NOTE | 2022-07-18 14:53 | XR ---
EXAMINATION TYPE: XR sacrum coccyx, XR pelvis AP view DATE OF EXAM: 07/18/2022 2:46 PM INDICATION: Patient age:Female; 32 years old; Reason for study: S30.0XXA S40.021A; fall, pain. COMPARISON: None TECHNIQUE: The pelvis was examined in a single projection. Sacrum/coccyx was evaluated in 3 views. FINDINGS: There is no evidence of fracture or dislocation. There is no soft tissue abnormality. The S I joints appear intact. No abnormal calcifications are present. Tubal ligation clips identified with the left one demonstrated in the upper left pelvis. Pelvic phleboliths. IMPRESSION: No acute osseous pathology.
== END | disposition home or self-care (01) ==
LOC: RADXRMAIN 14:14
PROVIDERS: ATTEND Emergency Medicine
DX: S30.0XXA Contusion of lower back and pelvis, initial encounter (principal); S40.021A Contusion of right upper arm, initial encounter; W19.XXXA Unspecified fall, initial encounter
CPT/HCPCS: 72100; 72170; 72220